=== PATIENT | male | born 1960 | race Caucasian/White ===

== ENCOUNTER 2023-05-13 06:22 | Day surgery (SDC) | payer OTHER, SELFPAY ==
[2023-05-13] VITALS (9 sets, daily range): BP systolic 123–151; BP diastolic 84–99; BMI 31.5
[2023-05-13] MEDS: TYLENOL 1000 MG PO (10:39)
[2023-05-13] MEDS: NORMOSOL-R 1000 IV (10:40)
--- NOTE | 2023-05-13 14:11 | OR.RPT ---
Operative Report
Operative Report
Primary Surgeon: Krystle
Assisting: David CHO
Pre-op Diagnosis: Incarcerated umbilical hernia
Post-op Diagnosis: Same
Procedure Performed: Robot assisted laparoscpic repair of incarcerated umbilical hernia (rTAPP)
Anesthesia Type: GETA + TAP block
Specimen / Cultures: None
Estimated Blood Loss: 5cc
Complications: None immediate
Operative Findings: 2cm umbilical hernia with incarcerated omentum. 12cm x 12cm bard soft mesh.
Date of Surgery:� 05/13/23
Indications:� This 63M developed�a symptomatic incarcerated umbilical hernia. Repair was thus indicated and laparoscopic approach was elected.
Description of procedure:� The patient was taken to the operating room and the correct site of surgery was verified. General anesthesia was induced and the patient was placed supine on the operating table with arms tucked.� The patient�s abdomen was
prepped and draped in standard sterile fashion. A time-out was completed verifying correct patient, procedure, site, positioning, and implants and special equipment prior to beginning this procedure. A stab incision was made in the left upper
quadrant, a Veress needle was inserted and proper position was confirmed by aspiration and saline drop test. Following this, pneumoperitoneum was created with insufflation of carbon dioxide to 12 mmHg. Then a 8mm robotic trocar was inserted at the
left anterior axillary line at the level of the umbilicus. A laparoscope was inserted and the area of initial trocar entry and Veress needle placement were both inspected and free of trauma. Two 8mm trocars were then placed a hand's breadth above
and below the initial trocar under direct visualization. The peritoneum was incised above the defect and a flap was developed in transverse and caudad directions using blunt and sharp dissection. The umbilical defect was identified and measured 2cm
x 2cm. Omental contents were manually reduced from the defect.� The defect was closed with 0 PDS stratafix suture.� A 12cm x 12cm bard soft mesh was passed through a trocar. The mesh was moved into position to lay flat against the abdominal wall,
centered on the defect. The mesh was secured into place using 2-0 vicryl suture under the defect and at all four corners as well as fci along each side.� A 2-0 monocryl stratafix was used to close the flap. A small central flap rent was closed
with 2-0 vicryl suture. A 14g angiocath was used to decompress the preperitoneal space revealing good seal and mesh in good position without folding or curling. A transversus abdominis plane block was performed under laparoscopic vision using
marcaine/decadron. After ensuring adequate hemostasis, the trocars were removed and the pneumoperitoneum allowed to escape. The trocar incisions were closed at the skin level using 4-0 monocryl and topical skin adhesive. The patient tolerated the
procedure well and was taken to the postanesthesia care unit in stable condition.
[2023-05-13] MEDS: ROXICODONE 5 MG PO (15:21)
== END 2023-05-13 15:30 | disposition home or self-care (01) ==
LOC: SDS 06:22
PROVIDERS: ATTENDING PHYSICIAN Surgery
DX: K42.0 Umbilical hernia with obstruction, without gangrene (principal)
CPT/HCPCS: 49592; C1781

== ENCOUNTER 2023-12-28 18:07 | Emergency (ER) | payer OTHER, SELFPAY ==
[2023-12-28 18:07] VITALS: BMI 33.6
[2023-12-28 18:08] VITALS: BP 160/98
[2023-12-28 18:31] LABS: % Basophils 0.2 % (0-2); % Immature Granulocytes 0.4 % (0-0.5); % Lymphocytes 4.3 % (20.5-51.1); % Monocytes 10.8 % (1.7-9.3); % Neutrophils 84.3 % (42.2-75.2); Absolute Immature Granulocytes 0.1 10^3/uL (0-0.05); Absolute Lymphocytes 0.5 10^3/uL (1.2-3.4); Absolute Monocytes 1.2 10^3/uL (0.1-0.6); Absolute Neutrophils 9.5 10^3/uL (1.4-6.5); Hematocrit 41.5 % (39.0-52.0); Hemoglobin 14.6 g/dL (13.0-18.0); Mean Corp Hgb Conc. 35.2 g/dL (33.0-37.0); Mean Corpuscular Hgb 32.5 pg (27.0-31.0); Mean Corpuscular Volume 92.4 fL (80.0-94.0); Mean Platelet Volume 10.1 fL (7.4-10.4); Nucleated Red Blood Cells % 0 % (-); Platelet Count 116 10^3/uL (130-400); Red Blood Cell Count 4.49 10^6/uL (4.70-6.10); Red Cell Dist. Width 13.1 % (11.5-14.5); White Blood Cell Count 11.2 10^3/uL (4.8-10.8)
[2023-12-28 18:44] LABS: ALT (SGPT) 23 U/L (0-50); AST (SGOT) 30 U/L (17-59); Albumin 4.6 g/dl (3.5-5.0); Alkaline Phosphatase 60 U/L (38-126); Blood Urea Nitrogen 19 mg/dl (9-20); Calcium 9.3 mg/dl (8.4-10.2); Carbon Dioxide 26 mmol/L (22-30); Chloride 100 mmol/L (98-107); Glucose 137 mg/dl (70-99); Potassium 4.8 mmol/L (3.5-5.1); Sodium 136 mmol/L (135-145); Total Bilirubin 2.1 mg/dl (0.2-1.3); Total Protein 7.1 g/dl (6.3-8.2); eGFR > 60.00
[2023-12-28 21:05] VITALS: BP 142/81
[2023-12-28 22:00] VITALS: BP 148/91
--- NOTE | 2023-12-28 22:27 | ED.GENMED ---
History of Present Illness
<Neisha Holguin MD, Resident - Last Filed: 12/28/23 23:53>
General
Chief Complaint: Skin Problem
Source: patient and family
Exam Limitations: none
Time Seen by Provider: 12/28/23 21:58
Travel History
Have you traveled to any high risk areas for coronavirus over the past 14 days?: No
Have you had any contact with someone who has COVID-19?: No
Do you have any symptoms of coronavirus? Fever > 100 degrees, chills, cough, shortness of breath, sore throat, loss of taste or smell, muscle aches, or headache?: No
History of Present Illness
History of Present Illness:
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
the hospital for evaluation of small ulcer above his lateral malleolus on right leg. Dialysis started with redness in Spring of 2023, patient started picking up the redness with his nails and it eventually turned out into a small ulcer. In the
beginning of December the ulcer became progressively worse with intermittent oozing surrounding redness and pain for which he sought speech coach care. The ulcer was biopsied and findings very little irrelevant for any malignancies. He checked 2
weeks of doxycycline 100 mg twice daily and finish the course about 10 days ago. He stated to have sore throat, congestion and rhinorrhea with URI-like symptoms on for which he saw his primary care physician who did a throat culture,
results were pending. His primary care started him on Augmentin. Yesterday he started having fevers, chills and mild left upper quadrant abdominal pain, left axillary pain that is usually present only during his chills. He has been taking Tylenol
and ibuprofen with intermittent fever relief. Hence he saw his speech coach on telehealth today, who prescribed doxycycline. Patient took single dose of doxycycline before coming to the ER. In the afternoon he started having fevers again and
patient was concerned about having sepsis for which she came to the ER.
His rapid COVID testing x 2 was negative at home. He denies having any sick contacts.
Past History
<Neisha Holguin MD, Resident - Last Filed: 12/28/23 23:53>
Past History
ED Past Medical History: HTN and Other (Septic arthritis x 2 in left knee, CAD, HLD,)
ED Past Surgical History: Orthopedic (wash out)
Social History
Tobacco: Non-smoker
Alcohol: Occasional
Drug: None
Personal:
Living: with family
Employment: Employed
Family History
Family History: Other
Review of Systems
<Neisha Holguin MD, Resident - Last Filed: 12/28/23 23:53>
Review of Systems
Allergies reviewed?: Yes
Other source history: family
Constitutional: Reports fever and chills
EENT: Reports sore throat (, improved.)
Respiratory: Reports no symptoms
Cardiac: Reports no symptoms
ABD/GI: Reports abdominal pain
: Reports no symptoms
Musculoskeletal: Reports other (Axillary pain from chills-left axilla)
Skin: Reports rash and other
Neurological: Reports no symptoms
Endocrine: Reports no symptoms
Hematologic/Lymphatic: Reports no symptoms
Psychiatric: Reports no symptoms
Phy Exam
<Neisha Holguin MD, Resident - Last Filed: 12/28/23 23:53>
General Physical Exam
General Presentation: well appearing and no apparent distress
General Skin: warm
General Habitus: normal
General Mental: alert
General Hydration: appears well hydrated
ENT Exam
ENT Exam: EOMI and TM's normal
Eye Exam
Eye Exam: PERRL and EOMI
Cardiovascular Exam
Cardiovascular Exam: regular rate/rhythm, no edema, no gallop, no JVD and no murmur
Heart Sounds: normal
Pulmonary Exam
Pulmonary Exam: lungs clear, no respiratory distress, no rales, no crackles and no rhonchi
Gastrointestinal Exam
Gastrointestinal Exam: normal bowel sounds, non tender, soft and non distended
Neurological Exam
Neurological Exam: alert, oriented x3 and speech normal
Skin Exam
Skin Exam: petechia (Petechial rash on his right leg, stasis dermatitis skin changes on bilateral lower legs.) and other (0.5 X.3 mm ulcer, irregular margins, with granulation tissue and mild oozing noted 10 cm above the lateral malleolus on his
right leg, surrounding skin erythematous.)
Sepsis
<Neisha Holguin MD, Resident - Last Filed: 12/28/23 23:53>
Sepsis Screening
Sepsis Assessment: Sepsis Ruled Out
Sepsis Screen
Sepsis Screen: Sepsis Ruled Out
Date: 12/28/23
Time: 23:47
Course
<Neisha Holguin MD, Resident - Last Filed: 12/28/23 23:53>
Orders/Labs/Results
Orders:
Orders
12/28/23 18:19
CBC/With Diff [Complete Blood Count/With Diff] Urgent
Comprehensive Metabolic Panel Urgent
12/28/23 22:25
Add On- LAB Urgent
Tests Added?: lactic acid
12/28/23 22:37
Acetaminophen [Tylenol] 1,000 mg PO NOW STA
Acetaminophen [Tylenol] 1,000 mg PO NOW STA
Ibuprofen [Motrin] 800 mg PO NOW STA
12/28/23 22:38
Encourage PO Hydration-Treatme ONCE
12/28/23 22:44
Lactic Acid Urgent
Comment: COLLECT. CANNOT ADD ON.
Abnormal Lab Results
12/28/23
18:19
WBC 11.2 H 10^3/uL
(4.8-10.8)
RBC 4.49 L 10^6/uL
(4.70-6.10)
MCH 32.5 H pg
(27.0-31.0)
Plt Count 116 L 10^3/uL
(130-400)
Abs Immat Gran (auto) 0.1 H 10^3/uL
(0-0.05)
Absolute Neuts (auto) 9.5 H 10^3/uL
(1.4-6.5)
Absolute Lymphs (auto) 0.5 L 10^3/uL
(1.2-3.4)
Absolute Monos (auto) 1.2 H 10^3/uL
(0.1-0.6)
Neutrophils % 84.3 H %
(42.2-75.2)
Lymphocytes % 4.3 L %
(20.5-51.1)
Monocytes % 10.8 H %
(1.7-9.3)
Glucose 137 H mg/dl
(70-99)
Total Bilirubin 2.1 H mg/dl
(0.2-1.3)
12/28/23 18:19
12/28/23 18:19
Vital Signs
Initial and Last Documented VS:
Initial Vital Signs
Temp Pulse Resp BP Pulse Ox
98.6 F 97 16 160/98 98
12/28/23 18:08 12/28/23 18:08 12/28/23 18:08 12/28/23 18:08 12/28/23 18:08
Last Documented Vital Signs
Temp Pulse Resp BP Pulse Ox
100.9 F H 97 16 138/92 98
12/28/23 21:06 12/28/23 18:08 12/28/23 18:08 12/28/23 23:00 12/28/23 18:08
Comment
Comment:
Continue doxycycline. No need to take Augmentin.
Follow-up with dermatology, keep up with your wound care appointment, follow-up with your primary care physician in 2 weeks.
Today laboratory examination showed elevated total bilirubin at 2.1, leukocytosis at 11.2, and a temperature of 100.9.
Serum lactate levels were at 1.2, SIRS criteria not met and sepsis ruled out
<Andree Ellis, DO - Last Filed: 12/28/23 23:47>
Orders/Labs/Results
Orders:
Orders
12/28/23 18:19
CBC/With Diff [Complete Blood Count/With Diff] Urgent
Comprehensive Metabolic Panel Urgent
12/28/23 22:25
Add On- LAB Urgent
Tests Added?: lactic acid
12/28/23 22:37
Acetaminophen [Tylenol] 1,000 mg PO NOW STA
Acetaminophen [Tylenol] 1,000 mg PO NOW STA
Ibuprofen [Motrin] 800 mg PO NOW STA
12/28/23 22:38
Encourage PO Hydration-Treatme ONCE
12/28/23 22:44
Lactic Acid Urgent
Comment: COLLECT. CANNOT ADD ON.
Abnormal Lab Results
12/28/23
18:19
WBC 11.2 H 10^3/uL
(4.8-10.8)
RBC 4.49 L 10^6/uL
(4.70-6.10)
MCH 32.5 H pg
(27.0-31.0)
Plt Count 116 L 10^3/uL
(130-400)
Abs Immat Gran (auto) 0.1 H 10^3/uL
(0-0.05)
Absolute Neuts (auto) 9.5 H 10^3/uL
(1.4-6.5)
Absolute Lymphs (auto) 0.5 L 10^3/uL
(1.2-3.4)
Absolute Monos (auto) 1.2 H 10^3/uL
(0.1-0.6)
Neutrophils % 84.3 H %
(42.2-75.2)
Lymphocytes % 4.3 L %
(20.5-51.1)
Monocytes % 10.8 H %
(1.7-9.3)
Glucose 137 H mg/dl
(70-99)
Total Bilirubin 2.1 H mg/dl
(0.2-1.3)
12/28/23 18:19
12/28/23 18:19
Vital Signs
Initial and Last Documented VS:
Initial Vital Signs
Temp Pulse Resp BP Pulse Ox
98.6 F 97 16 160/98 98
12/28/23 18:08 12/28/23 18:08 12/28/23 18:08 12/28/23 18:08 12/28/23 18:08
Last Documented Vital Signs
Temp Pulse Resp BP Pulse Ox
100.9 F H 97 16 138/92 98
12/28/23 21:06 12/28/23 18:08 12/28/23 18:08 12/28/23 23:00 12/28/23 18:08
<Neisha Holguin MD, Resident - Last Filed: 12/28/23 23:53>
MDM/Problems Addressed
Differential Diagnosis Includes:
SIRS versus sepsis.
SIRS and sepsis ruled out.
MDM/Problems Addressed:
Fever addressed, patient is currently on antibiotics for his ulcer. Continue doxycycline.
<Neisha Holguin MD, Resident - Last Filed: 12/28/23 23:53>
*Pulse Oximetry
Patient hypoxic: no
*EKG
Interpreted by ED Provider?: NA
*Critical Care Note
Total Time (30-74mins, 75-104mins- exclusive of procedures): Not Applicable
Data Reviewed
Review of Other/Old Records Reveals: Labs and Records
<Neisha Holguin MD, Resident - Last Filed: 12/28/23 23:53>
Update Note
Update Note:
No SIRS criteria or sepsis.
Updated patient about not having sepsis
Reviewed with the patient about staying hydrated, finishing the course of doxycycline, following up with wound care, following up with dermatology and primary care physician in the next 2 weeks
ED Attending Note
<Neisha Holguin MD, Resident - Last Filed: 12/28/23 23:53>
-
Portions of this chart may have been created with voice recognition software.� Occasional wrong word or��sound alike� substitutions may have occurred due to the inherent limitations of voice recognition software.
<Andree Ellis DO - Last Filed: 12/28/23 23:47>
ED Attending Note
Patient seen and examined by attending physician: Yes
I performed a history and physical exam of patient and discussed management with resident, I reviewed resident's note and agree with documented findings and plan of care.: Yes
ED Attending Note:
This is a 63-year-old gentleman with history of CAD, hypertension, hyperlipidemia, previous left total knee replacement with history of focal left knee infectious arthropathy thought to be related to local steroid injection requiring washout
procedures.
More recently he has been suffering with chronic superficial ulcerated wound right lateral lower leg just proximal to the lateral malleolus. He has been following with dermatology with previous biopsy showing thickened skin but otherwise
unremarkable. Intermittent focal inflammatory changes treated with a course of antibiotics which ended approximately 2 to 3 weeks ago.
More recently, beginning a few days ago he developed sore throat, nasal congestion and was evaluated by his primary care physician on , 2 days ago, had throat culture performed which is still pending. Yesterday he developed chills and fever
most noted at nighttime and again this afternoon prompting call to his PCP as well as speech coach. His PCP prescribed Augmentin and after a telehealth visit with his speech coach today he was started on doxycycline for potential cellulitis of
right lower leg. With ongoing fever and chills he was recommended to come to the ED for evaluation of potential sepsis. Thus far he has only had 1 dose of Augmentin and doxycycline. He has been taking Tylenol as well as ibuprofen for fever with
excellent but temporary relief, his last dose was 4:30 PM.
He does note that Augmentin 'chews his stomach up' but he has had no nausea nor vomiting, no diarrhea, no cough, no shortness of breath, no dizziness nor lightheadedness. He has had no dysuria and urgency and or hematuria. No flank pain.
No history of diabetes nor immunosuppression.
Home COVID test x 2 have been negative.
He has an initial appointment with wound care on December 29.
63-year-old gentleman appears his stated age, bright and alert, pleasant, appears in no acute distress. is accompanying.
HEENT: Posterior pharynx is without injection, scant clear to pearly postnasal drip is noted. No edema nor exudate. Mildly boggy turbinates without mucopus.
Neck is supple, nontender, no adenopathy.
Heart is regular rate and rhythm. No murmur no rub.
Lungs are clear to auscultation, respirations are easy and nonlabored. No cough appreciated.
Abdomen is soft, nondistended, nontender, no palpable masses. Normoactive bowel sounds. No CVA tenderness.
Extremities: Right lateral lower leg just proximal to the lateral malleolus is a 1 cm superficial dry ulcer with pink base with small central area of eschar. There is no surrounding erythema nor soft tissue swelling. There is a small patch of
erythema anterior lower leg that is minimally warm to touch but nontender. There is no calf tenderness, no lymphangitis. Peripheral pulses are full and equal. No tenderness to the ankle joint nor knee joint, no joint effusion nor peripheral edema.
Patient noted to be febrile but otherwise vital signs within normal limits without tachycardia nor hypotension. Overall well in appearance.
No evidence of SIRS
Superficial ulcer right lateral lower leg does not appear infected however there is an area of erythema on the anterior lower leg which is apparently new and could be concerning for an early focal cellulitis thus agree with continuing doxycycline.
Labs thus far reveal very mildly elevated white blood cell count of 11.2. Normal H&H. Minimal thrombocytopenia with platelet count of 116.
Random glucose mildly elevated 137. Patient has no history of diabetes and this is nonspecific/nondiagnostic.
Total bili minimally elevated at 2.1, all other LFTs within normal limits. This could be reflective of fasting state as patient has had minimal oral intake today. Abdomen remains soft without appreciable tenderness.
Will check lactic acid and medicate fever with Tylenol and ibuprofen.
12/28/2023 2346 PM
Lactic acid is normal.
Patient remains well in appearance.
Recommend continuing doxycycline. At this point can discontinue Augmentin as doxycycline should cover a potential strep pharyngitis as well as potential cellulitis.
Continue Tylenol versus ibuprofen as needed for fever.
Discussed importance of remaining well-hydrated on a daily basis.
Follow-up with wound care on Saturday as already scheduled.
Return precautions discussed.
Discharge Plan
Departure
Patient Disposition: Home (Routine Discharge)
Date of Disposition: 12/28/23
Time of Disposition: 23:52
Patient with high blood pressure during this ER visit?: Yes
Condition: Good
Covid-19: Not Applicable
Discharge Problem:
Cellulitis of right leg without foot, Cellulitis and abscess of right leg, HTN (hypertension)
Instructions: Cellulitis (Skin Infection), Adult (DC), BLOOD PRESSURE
Prescriptions:
No Action
fexofenadine 180 mg Tablet
180 mg PO DAILY
aspirin 81 mg Tablet,Chewable
81 mg PO DAILY
irbesartan [Avapro] 300 mg Tablet
150 mg PO HS
coenzyme Q10 [CoQ-10] 100 mg Capsule
300 mg PO DAILY
rosuvastatin [Crestor] 20 mg Tablet
20 mg PO DAILY
ezetimibe [Zetia] 10 mg Tablet
10 mg PO DAILY
Centrum Silver Men [id number] mcg Tablet
1 tab PO DAILY
ranolazine 1,000 mg Tablet Extended Release 12 Hr
1,000 mg PO BID
oxycodone 5 mg tablet
5 - 10 mg PO Q4HPRN PRN (Reason: moderate to severe pain) Qty: 12 0RF
Referrals:
Cecil Baird MD [Family Provider] -
Activity Restrictions/Additional Instructions:
Continue doxycycline. Stop Augmentin.
Stay hydrated.
Follow-up with wound care.
Follow-up with your dermatology and primary care.
Interventions
Interventions:
*Risk Screen - Suicide Last Done: 12/28/23 18:08
*General Assessment Last Done: 12/28/23 18:08
*Neglect/Abuse Screening Last Done: 12/28/23 18:08
*ED COVID-19 Vaccine History Last Done: 12/28/23 21:07
ED-Skin Assessment Last Done: 12/28/23 21:10
Discharge Date and Time
Print Language: NIGERIEN
[2023-12-28 23:00] VITALS: BP 138/92
[2023-12-28 23:04] LABS: Lactic Acid 1.2 mmol/L (0.7-2.0)
[2023-12-28] MEDS: MOTRIN 800 MG PO (23:04)
[2023-12-28] MEDS: TYLENOL 1000 MG PO (23:04)
[2023-12-29 00:03] VITALS: BP 129/71
== END 2023-12-29 00:25 | disposition home or self-care (01) ==
LOC: EMR 18:07
PROVIDERS: Emergency Medicine; EMERGENCY PHYSICIAN Emergency Medicine; FAMILY PHYSICIAN Internal Medicine
DX: L02.415 Cutaneous abscess of right lower limb (principal); L03.115 Cellulitis of right lower limb; I10 Essential (primary) hypertension; I25.10 Atherosclerotic heart disease of native coronary artery without angina pectoris; E78.5 Hyperlipidemia, unspecified; Z96.652 Presence of left artificial knee joint
CPT/HCPCS: 99283; 80053; 83605; 85025